=== PATIENT | male | born 1990 | race Caucasian/White ===

== ENCOUNTER 2020-08-09 11:42 | Emergency (ER) | payer OTHER ==
[2020-08-09] MEDS ORDERED: NORCO 5-325 TA1 EACH PO ×2 (13:05→13:07)
[2020-08-09] MEDS ORDERED: NAPROXEN500 MG PO ×2 (13:05→13:07)
== END 2020-08-09 13:50 | disposition home or self-care (01) ==
LOC: FER 11:42
DX: S93.402A Sprain of unspecified ligament of left ankle, initial encounter (principal); F17.210 Nicotine dependence, cigarettes, uncomplicated; X50.1XXA Overexertion from prolonged static or awkward postures, initial encounter; Y92.009 Unspecified place in unspecified non-institutional (private) residence as the place of occurrence of the external cause
CPT/HCPCS: 73610